=== PATIENT | male | born 1955 | race Caucasian/White ===

== ENCOUNTER 2017-11-03 22:35 | Emergency (ER) | payer OTHER ==
[2017-11-03 22:55] VITALS: BP 139/79; PULSE 88; TEMP 98.9; BMI 33.3
--- NOTE | 2017-11-04 02:31 | PDOC ---
History of Present Illness - General Chief Complaint: Wound Stated Complaint: PAIN Time Seen by Provider: 11/04/17 01:58 History Source: Patient Exam Limitations: No Limitations - History of Present Illness Initial Comments: 11/04/17 02:24 62M with pmh IDDM on pump present to the ED with ulcer on the 3rd digit of the right toe since Friday. He states that he has been hiking a lot the past month and developed a blister that eventually ulcerated. He grew concerned that the ulcer wasn't healing and that his toe didn't look right. Lost sensation in his feet about 5 years ago. up to the ankle. Denies fever, chills, weaknessm chest pain, sob. Past History - Past Medical History Allergies/Adverse Reactions: Allergies Allergy/AdvReac Type Severity Reaction Status Date / Time No Known Allergies Allergy Verified 11/03/17 22:53 Home Medications: Ambulatory Orders Atorvastatin Ca [Lipitor] 0 mg PO HS PRN 03/10/16 Insulin Aspart [Novolog] 100 unit SQ BID 03/10/16 Ramipril 0 mg PO DAILY PRN 03/10/16 Cephalexin Monohydrate [Keflex -] 500 mg PO Q6H #28 capsule 11/04/17 Diabetes: Yes HTN: Yes Hypercholesterolemia: Yes - Suicide/Smoking/Psychosocial Hx Smoking History: Never smoked Have you smoked in the past 12 months: No Information on smoking cessation initiated: No Hx Alcohol Use: No Drug/Substance Use Hx: No Review of Systems - Review of Systems Able to Perform ROS?: No Is the patient limited Prydeinig proficient: Yes Constitutional: No: Symptoms Reported HEENTM: No: Symptoms Reported Respiratory: No: Symptoms reported Cardiac (ROS): No: Symptoms Reported ABD/GI: No: Symptoms Reported : No: Symptoms Reported Musculoskeletal: No: Symptoms Reported Integumentary: Yes: See HPI Neurological: No: Symptoms reported *Physical Exam - Vital Signs Last Vital Signs Temp Pulse Resp BP Pulse Ox 98.9 F 88 18 139/79 97 11/03/17 22:49 11/03/17 22:49 11/03/17 22:49 11/03/17 22:49 11/03/17 22:49 - Physical Exam General Appearance: Yes: Nourished, Appropriately Dressed. No: Apparent Distress HEENT: positive: EOMI, ADRIÁN, Normal ENT Inspection Respiratory/Chest: positive: Lungs Clear, Normal Breath Sounds. negative: Chest Tender, Respiratory Distress Cardiovascular: positive: Regular Rhythm, Regular Rate, S1, S2 Vascular Pulses: Dorsalis-Pedis (R): 2+, Doralis-Pedis (L): 2+ Gastrointestinal/Abdominal: positive: Normal Bowel Sounds, Flat, Soft. negative : Tender Musculoskeletal: positive: Normal Inspection. negative: CVA Tenderness Extremity: positive: Normal Capillary Refill, Other (1cm diameter circular lesion over Right 3rd toe. minimal erythema. No drainage. no warmth vs left foot ) Integumentary: positive: Normal Color, Dry, Warm Neurologic: positive: Fully Oriented, Alert, Normal Mood/Affect Medical Decision Making - Medical Decision Making 11/04/17 02:34 Will give abx and referral to Dr. Mcbride's clinic *DC/Admit/Observation/Transfer Diagnosis at time of Disposition: Diabetic foot ulcer - Discharge Dispostion Disposition: HOME Condition at time of disposition: Unchanged/Unknown Admit: No - Prescriptions Prescriptions: Cephalexin Monohydrate [Keflex -] 500 mg PO Q6H #28 capsule - Referrals Referrals: Bhavani Lopez MD [Primary Care Provider] - Kevin Mcbride MD [Staff Physician] - - Patient Instructions Printed Discharge Instructions: DI for Diabetic Foot Ulcer Additional Instructions: [facility] up [facility] or your salesperson parts within the next 2-3 days. 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 Come back to the ER for any new, worsening or concerning symptoms. - Post Discharge Activity
[2017-11-04] MEDS ORDERED: CEPHALEXIN MONOHYDRATE 500 MG CAPSULE (UD) PO ONE (02:42)
[2017-11-04] MEDS ORDERED: CEPHALEXIN MONOHYDRATE 250 MG CAPSULE (FP) ONE (02:45)
--- NOTE | 2017-11-04 02:52 | PDOC ---
Attending Attestation - Resident Resident Name: Vicente Vasquez - ED Attending Attestation I have performed the following: I have examined & evaluated the patient, The case was reviewed & discussed with the resident, I agree w/resident's findings & plan, Exceptions are as noted - HPI HPI: 11/04/17 02:44 62 M with h/o DM w/ insulin pump presents to ED with R 3rd toe ulcer. Pt states that he was walking a lot over the past few days and developed a blister on his toe. Yesterday, he the blister ruptured, revealing an ulcer at the tip of his toe. Pt noted some discoloration earlier this evening which has improved. Now he reports only some redness. Denies any pain but states he has no sensation in his feet. Denies F/C. Denies h/o diabetic foot ulcers. - Physicial Exam PE: 11/04/17 02:52 "GENERAL: Awake, alert, and fully oriented, in no acute distress. Generally weak appearing. HEAD: No signs of trauma EYES: PERRLA, EOMI, sclera anicteric, conjunctiva clear ENT: Auricles normal inspection, hearing grossly normal, nares patent, oropharynx clear without exudates. Moist mucosa NECK: Nontender, no stepoffs, Normal ROM, supple, no lymphadenopathy, JVD, or masses LUNGS: Breath sounds equal, clear to auscultation bilaterally. No wheezes, and no crackles HEART: Regular rate and rhythm, normal S1 and S2, no murmurs, rubs or gallops ABDOMEN: Soft, nontender, normoactive bowel sounds. No guarding, no rebound. No masses EXTREMITIES: R 3rd toe with 1cm pink ulcer at tip, clean based, with no purulent drainage, mild erythema extending to base of toe, no induration/ fluctuance NEUROLOGICAL: Cranial nerves II through XII intact. 5/5 strength and sensation in all extremities, Normal speech, normal gait, normal cerebellar function SKIN: Warm, Dry, normal turgor, no rashes or lesions noted. " - Medical Decision Making 11/04/17 02:56 62 M with diabetic foot ulcer. Mild surrounding erythema but no other signs of infection. Pt with no systemic symptoms. Good distal pulses and cap refill. No signs of gangrene. - Keflex - F/u vascular surgery and podiatry
== END 2017-11-04 02:52 | disposition home or self-care (01) ==
LOC: JER 22:35
DX: E10.621 Type 1 diabetes mellitus with foot ulcer (principal); L97.511 Non-pressure chronic ulcer of other part of right foot limited to breakdown of skin; Z79.4 Long term (current) use of insulin; Z96.41 Presence of insulin pump (external) (internal); I10 Essential (primary) hypertension; E78.00 Pure hypercholesterolemia, unspecified
CPT/HCPCS: 99281-25

== ENCOUNTER 2021-03-01 11:37 | Observation (INO) | payer BC, OTHER ==
[2021-03-01 12:43] LABS: BASO % 0.7 % (0-2.0); EOS % 0.7 % (0-4.5); HEMATOCRIT 40.5 % (35.4-49); HEMOGLOBIN 13.7 GM/dl (11.7-16.9); LYMPH % 16.4 % (8-40); MCH 31.1 pg (25.7-33.7); MCHC 33.7 g/dl (32.0-35.9); MEAN CELL VOLUME 92.1 fl (80-96); MEAN PLT VOLUME 8.2 fl (7.5-11.1); MONO % 11.3 % (3.8-10.2); NEUT % 70.9 % (42.8-82.8); PLATELET COUNT 172 10^3/uL (134-434); RDW 12.8 % (11.9-15.9); WHITE BLOOD COUNT 8.1 K/mm3 (4.0-10.8)
[2021-03-01 12:54] LABS: ALBUMIN 3.8 g/dl (3.4-5.0); BILIRUBIN,TOTAL 1.7 mg/dl (0.2-1); CALCIUM 8.5 mg/dl (8.5-10); CREATININE 1.4 mg/dl (0.55-1.3); MAGNESIUM 1.7 mg/dL (1.8-2.4); TOT PROT 6.9 g/dl (6.4-8.2)
[2021-03-01 13:03] LABS: ACTIVATED PTT 28.3 SECONDS (25.2-36.5)
[2021-03-01 13:08] LABS: INR 1.09 (0.82-1.09); PROTHROMBIN TIME (PATIENT) 12.1 SEC (10.2-13.0)
[2021-03-01] MEDS ORDERED: RAMIPRIL 1.25 MG CAPSULE PO PRN (16:55)
[2021-03-01] MEDS ORDERED: ATORVASTATIN CA 10 MG TABLET (FP) PO PRN (16:55)
[2021-03-01 17:45] VITALS: BMI 31.7
[2021-03-01] MEDS ORDERED: MAGNESIUM 1GM/D5W - 1 GM/100 ML IVPB IVPB ONE (18:00)
[2021-03-01] MEDS: INSULIN SLIDING SCALE (NOVOLOG) 1 VIAL SQ SCH (18:42)
[2021-03-01] MEDS: INSULIN (LEVEMIR) 100 UNITS/ML UNITS SQ SCH (22:02)
[2021-03-02] MEDS: INSULIN (LEVEMIR) 100 UNITS/ML UNITS SQ SCH (06:35)
[2021-03-02] MEDS: INSULIN SLIDING SCALE (NOVOLOG) 1 VIAL SQ SCH ×3 (06:36→17:13)
[2021-03-02] MEDS ORDERED: INSULIN SLIDING SCALE (NOVOLOG) 1 VIAL SQ SCH (07:00)
[2021-03-02 07:53] LABS: CALCIUM 8.5 mg/dl (8.5-10); CREATININE 1.1 mg/dl (0.55-1.3); MAGNESIUM 1.9 mg/dL (1.8-2.4)
[2021-03-02 07:58] LABS: BASO % 0.4 % (0-2.0); EOS % 3.2 % (0-4.5); HEMATOCRIT 36.2 % (35.4-49); HEMOGLOBIN 12.4 GM/dl (11.7-16.9); LYMPH % 18.2 % (8-40); MCH 30.5 pg (25.7-33.7); MCHC 34.2 g/dl (32.0-35.9); MEAN CELL VOLUME 89.3 fl (80-96); MONO % 15.3 % (3.8-10.2); NEUT % 62.9 % (42.8-82.8); PLATELET COUNT 151 10^3/uL (134-434); RBC 4.05 M/mm3 (4.00-5.60); RDW 12.3 % (11.9-15.9)
[2021-03-02] MEDS: ASPIRIN 81 MG CHEWABLE TABLETS PO SCH (10:31)
[2021-03-02] MEDS: RAMIPRIL 5 MG CAPSULE PO SCH (17:13)
[2021-03-02] MEDS: HEPARIN NA (PORCINE) 5,000 UNITS/ML 1ML VIAL SQ SCH ×2 (17:13→21:32)
[2021-03-02] MEDS ORDERED: ATORVASTATIN CA 20 MG TABLET (FP) PO SCH (22:00)
[2021-03-02] MEDS ORDERED: INSULIN (LEVEMIR) 100 UNITS/ML UNITS SQ SCH (22:00)
[2021-03-03] MEDS: INSULIN SLIDING SCALE (NOVOLOG) 1 VIAL SQ SCH ×2 (06:57→06:58)
[2021-03-03] MEDS: HEPARIN NA (PORCINE) 5,000 UNITS/ML 1ML VIAL SQ SCH (06:58)
[2021-03-03 09:04] LABS: BASO % 0.7 % (0-2.0); EOS % 4.6 % (0-4.5); HEMATOCRIT 37.4 % (35.4-49); HEMOGLOBIN 12.7 GM/dl (11.7-16.9); LYMPH % 24.2 % (8-40); MCH 30.4 pg (25.7-33.7); MEAN CELL VOLUME 89.2 fl (80-96); MEAN PLT VOLUME 8.4 fl (7.5-11.1); MONO % 14.2 % (3.8-10.2); NEUT % 56.3 % (42.8-82.8); PLATELET COUNT 155 10^3/uL (134-434); RDW 12.1 % (11.9-15.9); WHITE BLOOD COUNT 4.7 K/mm3 (4.0-10.8)
[2021-03-03 09:12] LABS: ALBUMIN 3.5 g/dl (3.4-5.0); BILIRUBIN,TOTAL 0.9 mg/dl (0.2-1); CALCIUM 8.9 mg/dl (8.5-10); MAGNESIUM 1.8 mg/dL (1.8-2.4); TOT PROT 6.4 g/dl (6.4-8.2)
[2021-03-03 09:59] VITALS: BP 140/73; PULSE 84; TEMP 98
[2021-03-03] MEDS: RAMIPRIL 5 MG CAPSULE PO SCH (10:01)
[2021-03-03] MEDS: ASPIRIN 81 MG CHEWABLE TABLETS PO SCH (10:01)
== END 2021-03-03 11:44 | disposition home or self-care (01) ==
LOC: FER 11:37 → FM/S 15:44
PROVIDERS: ADMIT Internal Medicine; ATTEND Nurse Practitioner Family
PROC: 3E023GC Introduction of Other Therapeutic Substance into Muscle, Percutaneous Approach (ICD-10-PCS; principal; 2021-03-01)
PROC: 3E013VG Introduction of Insulin into Subcutaneous Tissue, Percutaneous Approach (ICD-10-PCS; 2021-03-01)
PROC: 3E033GC Introduction of Other Therapeutic Substance into Peripheral Vein, Percutaneous Approach (ICD-10-PCS; 2021-03-01)
DX: I63.9 Cerebral infarction, unspecified (principal); E11.65 Type 2 diabetes mellitus with hyperglycemia; E78.5 Hyperlipidemia, unspecified; R20.0 Anesthesia of skin; R53.1 Weakness; R26.2 Difficulty in walking, not elsewhere classified; E66.9 Obesity, unspecified; Z68.31 Body mass index [BMI] 31.0-31.9, adult; I10 Essential (primary) hypertension; Z20.822 Contact with and (suspected) exposure to COVID-19; R42 Dizziness and giddiness
CPT/HCPCS: 36415; 70450-TC; 71045-TC-FY; 80048; 80053; 80061; 81003; 82962; 83036; 83735; 84443; 84484; 85025; 85610; 85730; 87086; 93005; 93880-TC; 99285-25; C9803; G0378; J1644; U0003; U0005